=== PATIENT | male | born 1985 | race African-American/Black ===

== ENCOUNTER 2020-08-03 16:04 | Emergency (ER) | payer SELFPAY ==
[~2020-08-03] VITALS: Ht 175.3 cm; Wt 99.0 kg
[2020-08-03] MEDS ORDERED: IBUPROFEN 600MG TABLET PO ONE (18:15)
[2020-08-03 18:18] VITALS: BP 130/76
== END 2020-08-03 18:19 | disposition home or self-care (01) ==
LOC: ER 16:04
DX: M25.552 Pain in left hip (principal)
CPT/HCPCS: 73502; 99283; Z7610